=== PATIENT | female | born 1975 | race Caucasian/White ===

== ENCOUNTER 2017-10-11 15:52 | Emergency (ER) | payer SELFPAY ==
[2017-10-11] MEDS ORDERED: MECLIZINE HCL 12.5 MG TAB ONE (16:54)
[2017-10-11] MEDS ORDERED: ONDANSETRON 4 MG/2 ML VIAL ONE (16:54)
[2017-10-11] MEDS ORDERED: MORPHINE 4 MG/ML SYR ONE (16:54)
[2017-10-11] MEDS ORDERED: NA CHLORIDE 0.9% 1,000 ML ONE (16:55)
[2017-10-11] MEDS ORDERED: DIPHENHYDRAMINE 50 MG/ML VIAL ONE (17:30)
--- NOTE | 2017-10-11 18:02 | RAD REPORT ---
EXAM DESCRIPTION: CT - Head Brain Wo Cont - 10/11/2017 5:53 pm CLINICAL HISTORY: Dizziness;Headache COMPARISON: HEAD BRAIN W O CONTRAST dated 10/30/2009; Chest Pa And Lat (2 Views) dated 10/31/2016; Abd omen Pelvis W Contrast dated 06/21/2017 TECHNIQUE: All CT scans are performed using dose optimization technique as appropriate and may inclu de automated exposure control or mA/KV adjustment according to patient size. FINDINGS: No intracranial hemorrhage, hydrocephalus or extra-axial fluid collection.No areas of brai n edema or evidence of midline shift. The paranasal sinuses and mastoids are clear. The calvarium is intact. IMPRESSION: No acute intracranial abnormality.
--- NOTE | 2017-10-11 18:24 | ER ---
Nurse's Notes [facility] Name: Isabella Driver Age: 42 yrs Sex: Female : 1975 Arrival Date: 10/11/2017 Time: 15:54 Bed 19 Private MD: Diagnosis: Headache;Dizziness and giddiness Presentation: 10/11 16:06 Presenting complaint: Patient states: "I am dizzy and my head is pulsing. I have missed lk1 2 days of work with this.". Transition of care: patient was not received from another setting of care. Onset of symptoms was October 09, 2017. Risk Assessment: Do you want to hurt yourself or someone else? Patient reports no desire to harm self or others. Initial Sepsis Screen: Does the patient meet any 2 criteria? No. Patient's initial sepsis screen is negative. Does the patient have a suspected source of infection? No. Patient's initial sepsis screen is negative. Care prior to arrival: None. 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 - Social history:: Smoking status: Patient uses tobacco products, smokes one-half pack cigarettes per day. - Ebola Screening: : No symptoms or risks identified at this time. Screenin:02 Abuse screen: Denies threats or abuse. Denies injuries from another. hb 17:02 Nutritional screening: No deficits noted. Tuberculosis screening: No symptoms or risk hb factors identified. Fall Risk None identified. Assessment: 16:30 General: Appears in no apparent distress. uncomfortable, ill, Behavior is calm, hb cooperative. Pain: Pain currently is 10 out of 10 on a pain scale. Neuro: Level of Consciousness is awake, alert, obeys commands, Oriented to person, place, time, situation, Pupils are PERRLA, Reports dizziness, headache frontal area. Cardiovascular: Heart tones S1 S2 present Capillary refill < 3 seconds Patient's skin is warm and dry. Respiratory: Airway is patent Trachea midline Respiratory effort is even, unlabored, Respiratory pattern is regular, symmetrical, Breath sounds are clear bilaterally. GI: Abdomen is non-distended, Bowel sounds present X 4 quads. Abd is soft and non tender X 4 quads. Reports nausea. : No signs and/or symptoms were reported regarding the genitourinary system. EENT: No signs and/or symptoms were reported regarding the EENT system. Derm: No signs and/or symptoms reported regarding the dermatologic system. Skin is intact, is healthy with good turgor, Skin is pink, warm \\T\\ dry. Musculoskeletal: No signs and/or symptoms reported regarding the musculoskeletal system. 17:25 Reassessment: Pt shaking after morphine administration, Dr. Alex notfied, benadryl hb 25 mg administered as ordered/. 17:50 Reassessment: Shaking improved but still shaking some, benadryl 25 mg administered as hb ordered. d. 17:53 Reassessment: Pt reports shaking ceased, feels much better. CT dept notified pt ready hb to go to CT. 18:15 Reassessment: Patient appears in no apparent distress at this time. Patient and/or hb family updated on plan of care and expected duration. Pain level reassessed. Patient is alert, oriented x 3, equal unlabored respirations, skin warm/dry/pink. Patient states symptoms have improved. Vital Signs: 16:08 BP 139 / 93; Pulse 86; Resp 16; Temp 97.8(TE); Pulse Ox 98% on R/A; Weight 81.65 kg lk1 (R); Height 5 ft. 6 in. (167.64 cm) (R); Pain 9/10; 17:13 BP 115 / 97; Pulse 81; Resp 20; Pulse Ox 98% on R/A; mh5 18:00 BP 118 / 82; Pulse 78; Resp 16; Pulse Ox 100% on R/A; Pain 1/10; hb 16:08 Body Mass Index 29.05 (81.65 kg, 167.64 cm) lk1 ED Course: 15:54 Patient arrived in ED. rg4 16:07 Triage completed. lk1 16:10 Arm band placed on right wrist. lk1 16:21 Moises Alex MD is Attending Physician. kdr 16:22 Elana Gonzalez, CHENG is Primary Nurse. hb 17:00 Patient has correct armband on for positive identification. Bed in low position. Call hb light in reach. Side rails up X 1. 17:02 Missed attempt(s): 20 gauge in right antecubital area. Bleeding controlled, band aid hb applied, catheter tip intact. 17:14 Inserted saline lock: 20 gauge in right antecubital area, using aseptic technique. hb ,using aseptic technique. by Sirisha. 17:23 Radiology exam delayed due to pt having a panic attack at this time, Nurse to call when vm2 ready. 17:53 CT completed. Patient tolerated procedure well. Patient moved back from CT. nj 17:53 CT Head Brain wo Cont In Process Unspecified. EDMS 18:30 No provider procedures requiring assistance completed. IV discontinued, intact, hb bleeding controlled, No redness/swelling at site. Pressure dressing applied. Administered Medications: 17:16 Drug: morphine 4 mg Route: IVP; Site: right antecubital; hb 18:00 Follow up: Response: No adverse reaction; Pain is decreased hb 17:17 Drug: Zofran 4 mg Route: IVP; Site: right antecubital; hb 18:00 Follow up: Response: No adverse reaction; Nausea is decreased hb 17:23 Drug: Meclizine 50 mg Route: PO; hb 18:00 Follow up: Response: No adverse reaction hb 17:23 Drug: NS 0.9% 1000 ml Route: IV; Rate: 1 bolus; Site: right antecubital; hb 18:20 Follow up: Response: Marked relief of symptoms; IV Status: Completed infusion hb 17:24 Drug: Benadryl 25 mg Route: IVP; Site: right antecubital; hb 17:45 Drug: Benadryl 50 mg Route: IVP; Site: right antecubital; hb 18:02 Follow up: Response: No adverse reaction; Marked relief of symptoms hb Outcome: 18:23 Discharge ordered by . kdr 18:30 Discharged to home ambulatory, with family. hb 18:30 Condition: stable 18:30 Discharge instructions given to patient, Instructed on discharge instructions, follow up and referral plans. medication usage, Demonstrated understanding of instructions, follow-up care, medications, Prescriptions given X 1. 18:46 Patient left the ED. hb Signatures: Dispatcher [employer] EDMS Moises Alex MD MD [facility] Makayla Garzon RN RN lk1 Elana Gonzalez RN RN hb Garcia, Rubi 4 Naun Noriega, Tina [facility] Layla Goodwin [facility] Corrections: (The following items were deleted from the chart) 17:23 17:08 Patient moved to [place] [id number] 17:48 17:14 Inserted saline lock: 20 gauge in right antecubital area, using aseptic [facility] technique. ,using aseptic technique. by Tina ruiz 17:49 17:14 Inserted saline lock: 20 gauge in right antecubital area, using aseptic technique. ,using aseptic technique. by Tina linton
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
== END 2017-10-11 18:46 | disposition home or self-care (01) ==
LOC: ER 15:52
DX: R51 Headache (principal); R42 Dizziness and giddiness; Z88.5 Allergy status to narcotic agent; Z88.8 Allergy status to other drugs, medicaments and biological substances; F17.210 Nicotine dependence, cigarettes, uncomplicated
CPT/HCPCS: 70450; 96361; 96374; 96375; 99284; J2405; J7030

== ENCOUNTER 2017-10-24 13:18 | Emergency (ER) | payer SELFPAY ==
--- NOTE | 2017-10-24 15:11 | RAD REPORT ---
EXAM DESCRIPTION: RAD - Knee Right 3 View - 10/24/2017 2:45 pm CLINICAL HISTORY: Right knee pain status post fall FINDINGS: No fracture or dislocation is seen.
--- NOTE | 2017-10-24 15:12 | RAD REPORT ---
EXAM DESCRIPTION: RAD - Tib Fib Right - 10/24/2017 2:44 pm CLINICAL HISTORY: Right leg pain status post fall FINDINGS: No fracture is seen
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
== END 2017-10-24 16:13 | disposition home or self-care (01) ==
LOC: ER 13:18
DX: S86.911A Strain of unspecified muscle(s) and tendon(s) at lower leg level, right leg, initial encounter (principal); N28.9 Disorder of kidney and ureter, unspecified; F17.200 Nicotine dependence, unspecified, uncomplicated; X58.XXXA Exposure to other specified factors, initial encounter; Y93.89 Activity, other specified; Y92.89 Other specified places as the place of occurrence of the external cause; Y99.2 Volunteer activity; Z88.4 Allergy status to anesthetic agent; Z88.6 Allergy status to analgesic agent; Z88.8 Allergy status to other drugs, medicaments and biological substances
CPT/HCPCS: 99283